=== PATIENT | female | born 1955 | race African-American/Black ===

== ENCOUNTER 2021-05-10 14:27 | Emergency (ER) | payer MEDICARE ==
[2021-05-10 15:00] LABS: Bilirubin Negative (Negative); Blood, Urine Trace (Negative); Glucose, Urine (Dipstick) Negative (Negative); Ketone, Urine 15 mg/dL (Negative); Leukocyte Trace (Negative); Nitrite Negative (Negative); Protein, Urine (Dipstick) Negative (Neg-Trace); Specific Gravity, Urine 1.025 (1.005-1.030); Urobilinogen 0.2 mg/dL (Less than 2); pH, Urine 5.5 (5.0-9.0)
[2021-05-10 15:16] LABS: Clarity Hazy (Clear)
[2021-05-10 15:17] LABS: Bacteria/HPF Rare-Few HPF (None Seen); RBC/HPF 0-3 HPF (0-3); Squamous Epithelial 0-3 HPF (0-3); WBC/HPF 21-50 HPF (0-3)
[2021-05-10 15:53] LABS: ALT (SGPT) 12 U/L (8-55); AST (SGOT) 17 U/L (5-34); Albumin 4.2 g/dL (3.4-4.8); Alkaline Phosphatase 79 U/L (40-110); Anion Gap 12 mmol/L (10-20); BUN (Urea Nitrogen) 16 mg/dL (9.8-20.1); Bilirubin, Total 0.4 mg/dL (0.2-1.2); Calc. Creatinine Clearance 0 mL/min (70-130); Calcium 9.4 mg/dL (7.8-10.44); Carbon Dioxide 26 mmol/L (23-31); Chloride 105 mmol/L (98-107); Globulin 3.3 g/dL (2.4-3.5); Glucose 98 mg/dL (80-115); Potassium 3.4 mmol/L (3.5-5.1); Protein, Total 7.5 g/dL (5.8-8.1); Sodium 140 mmol/L (136-145)
[2021-05-10 15:55] LABS: Band 1 % (5-11); Lymphocytes 36 % (21-51); MDiff Complete? YES; Mean Corpuscular HGB CONC 30.4 g/dL (32.0-36.0); Mean Corpuscular Hemoglobin 26.9 pg (27.0-31.0); Mean Corpuscular Volume 88.4 fL (78.0-98.0); Mean Platelet Volume 8.7 fL (7.4-10.4); Monocytes 6 % (0-10); Neutrophil 57 % (42-75); Platelet Count 242 thou/uL (130-400); Platelet Morphology Comment Appears Adequate; RBC Distribution Width 12.8 % (11.5-14.5); RBC Morphology Normal; Red Blood Cell (RBC) Count 4.82 mill/uL (4.20-5.40); White Blood Cell (WBC) Count 6.3 thou/uL (4.8-10.8)
[2021-05-10] MEDS ORDERED: Mag-Al Plus 1200 MG/1200 MG/120 MG/30 ML UDCUP ONE (16:51)
[2021-05-10] MEDS ORDERED: Meclizine HCl 25 MG TAB ONE (16:51)
[2021-05-10] MEDS ORDERED: hydrALAZINE 20 MG/ML VIAL ONE (19:47)
[2021-05-10] MEDS ORDERED: Acetaminophen 500 MG TAB ONE (21:07)
[2021-05-10] MEDS ORDERED: cefTRIAXone\\ROCEPHIN 1 GM VIAL ONE (21:18)
[2021-05-10] MEDS ORDERED: Sodium Chloride 0.9% 100 ML ONE (21:18)
[2021-05-10] MEDS ORDERED: Amlodipine 5 MG TAB ONE (21:36)
== END 2021-05-10 21:37 | disposition short-term general hospital (02) ==
LOC: MADERS 14:27
DX: G45.9 Transient cerebral ischemic attack, unspecified (principal); N39.0 Urinary tract infection, site not specified; R29.700 NIHSS score 0
CPT/HCPCS: 36415; 70450; 71045; 80053; 81003; 81015; 83735; 83880; 84484; 85025; 93005; 96374; 96375; J0360; J0696; J3490

== ENCOUNTER 2021-05-18 07:59 | Emergency (ER) | payer MEDICARE ==
[2021-05-18] MEDS ORDERED: Ondansetron PF 4 MG/2 ML Vial ONE (09:01)
[2021-05-18] MEDS ORDERED: Meclizine HCl 25 MG TAB ONE (09:01)
[2021-05-18 09:44] LABS: Mean Corpuscular HGB CONC 31.4 g/dL (32.0-36.0); Mean Corpuscular Hemoglobin 27.5 pg (27.0-31.0); Mean Corpuscular Volume 87.6 fL (78.0-98.0); Mean Platelet Volume 9.2 fL (7.4-10.4); Platelet Count 270 thou/uL (130-400); RBC Distribution Width 12.4 % (11.5-14.5); Red Blood Cell (RBC) Count 5.14 mill/uL (4.20-5.40); White Blood Cell (WBC) Count 5.5 thou/uL (4.8-10.8)
[2021-05-18 09:54] LABS: Manual Diff?? YES
[2021-05-18 09:55] LABS: Anisocytosis SLIGHT = 6-15 cells (100X) (0-5/hpf); Band 2 % (5-11); Lymphocytes 39 % (21-51); MDiff Complete? YES; Monocytes 5 % (0-10); Neutrophil 54 % (42-75); Platelet Morphology Comment Appears Adequate
[2021-05-18 09:57] LABS: Bicarbonate (HCO3v) 31.1 mmol/L (22.0-28.0); CO2 Tension (PvCO2) 49.5 mmHg (42.0-51.0)
[2021-05-18 09:58] LABS: Hemoglobin - Calc 16.3 g/dL (12.0-16.0); Sodium 136 mmol/L (138-145); vO2 Saturation-calc 93.7 % (60.0-85.0)
[2021-05-18 09:59] LABS: Chloride 97 mmol/L (98-107); Potassium 5.3 mmol/L (3.5-5.1); T. Carbon Dioxide 32.6 mmol/L (22.0-28.0)
[2021-05-18 10:01] LABS: Calcium, Ionized 1.08 mmol/L (1.15-1.33)
[2021-05-18 10:08] LABS: Bilirubin Negative (Negative); Blood, Urine Trace (Negative); Clarity Clear (Clear); Glucose, Urine (Dipstick) Negative (Negative); Ketone, Urine Negative (Negative); Leukocyte Negative (Negative); Nitrite Negative (Negative); Protein, Urine (Dipstick) Negative (Neg-Trace); Specific Gravity, Urine 1.025 (1.005-1.030); Urobilinogen 0.2 mg/dL (Less than 2)
[2021-05-18 10:15] LABS: RBC/HPF 0-3 HPF (0-3); WBC/HPF 0-3 HPF (0-3)
[2021-05-18 10:16] LABS: Bacteria/HPF Rare-Few HPF (None Seen)
[2021-05-18 10:39] LABS: ALT (SGPT) 13 U/L (8-55); AST (SGOT) 21 U/L (5-34); Albumin 4.4 g/dL (3.4-4.8); Alkaline Phosphatase 81 U/L (40-110); Anion Gap 16 mmol/L (10-20); BUN (Urea Nitrogen) 21 mg/dL (9.8-20.1); Bilirubin, Total 0.5 mg/dL (0.2-1.2); Calc. Creatinine Clearance 0 mL/min (70-130); Calcium 9.7 mg/dL (7.8-10.44); Carbon Dioxide 28 mmol/L (23-31); Chloride 96 mmol/L (98-107); Globulin 3.9 g/dL (2.4-3.5); Glucose 110 mg/dL (80-115); Magnesium 2.1 mg/dL (1.6-2.6); Potassium 3.6 mmol/L (3.5-5.1); Protein, Total 8.3 g/dL (5.8-8.1); Sodium 136 mmol/L (136-145)
[2021-05-18 11:28] LABS: Troponin I Less than 0.010 ng/mL (< 0.028)
== END 2021-05-18 11:58 | disposition home or self-care (01) ==
LOC: MADERS 07:59
DX: R42 Dizziness and giddiness (principal); R11.2 Nausea with vomiting, unspecified; Z79.899 Other long term (current) drug therapy; Z79.82 Long term (current) use of aspirin
CPT/HCPCS: 36415; 71045; 80053; 81003; 81015; 82330; 82803; 83735; 83880; 84443; 84484; 85014; 85025; 93005; 96374; J2405

== ENCOUNTER 2021-11-29 07:36 | Emergency (ER) | payer MEDICARE ==
[2021-11-29] MEDS ORDERED: Meclizine HCl 25 MG TAB ONE (08:33)
[2021-11-29 09:51] LABS: ALT (SGPT) 10 U/L (8-55); AST (SGOT) 17 U/L (5-34); Albumin 3.9 g/dL (3.4-4.8); Alkaline Phosphatase 61 U/L (40-110); Anion Gap 12 mmol/L (10-20); BUN (Urea Nitrogen) 11 mg/dL (9.8-20.1); Bilirubin, Total 0.3 mg/dL (0.2-1.2); Calc. Creatinine Clearance 0 mL/min (70-130); Carbon Dioxide 28 mmol/L (23-31); Chloride 108 mmol/L (98-107); Globulin 3.2 g/dL (2.4-3.5); Glucose 85 mg/dL (80-115); Magnesium 1.9 mg/dL (1.6-2.6); Potassium 4.4 mmol/L (3.5-5.1); Protein, Total 7.1 g/dL (5.8-8.1); Sodium 144 mmol/L (136-145)
[2021-11-29 09:55] LABS: Hemoglobin 12.3 g/dL (12.0-16.0); Mean Corpuscular Hemoglobin 27.6 pg (27.0-31.0); Mean Corpuscular Volume 87.2 fL (78.0-98.0); Red Blood Cell (RBC) Count 4.48 mill/uL (4.20-5.40); White Blood Cell (WBC) Count 4.2 thou/uL (4.8-10.8)
[2021-11-29 09:56] LABS: Manual Diff?? YES; Mean Corpuscular HGB CONC 31.6 g/dL (32.0-36.0); Mean Platelet Volume 6.9 fL (7.4-10.4); Platelet Count 235 thou/uL (130-400); RBC Distribution Width 12.3 % (11.5-14.5)
[2021-11-29 10:03] LABS: Band 2 % (5-11); Lymphocytes 56 % (21-51); MDiff Complete? YES; Monocytes 2 % (0-10); Neutrophil 40 % (42-75); Platelet Morphology Comment Appears Adequate; RBC Morphology Normal
== END 2021-11-29 10:36 | disposition home or self-care (01) ==
LOC: MADERS 07:36
DX: R42 Dizziness and giddiness (principal); G47.33 Obstructive sleep apnea (adult) (pediatric); I95.1 Orthostatic hypotension
CPT/HCPCS: 80053; 83735; 84443; 85025; 93005

== ENCOUNTER 2022-02-11 14:46 | Emergency (ER) | payer MEDICARE ==
[2022-02-11] MEDS ORDERED: Acetaminophen 325 MG TAB ONE (15:22)
== END 2022-02-11 15:28 | disposition home or self-care (01) ==
LOC: MADERS 14:46
DX: M54.6 Pain in thoracic spine (principal); K21.9 Gastro-esophageal reflux disease without esophagitis; E78.2 Mixed hyperlipidemia; M19.90 Unspecified osteoarthritis, unspecified site; Z86.73 Personal history of transient ischemic attack (TIA), and cerebral infarction without residual deficits; G47.30 Sleep apnea, unspecified; Z79.82 Long term (current) use of aspirin; Z79.899 Other long term (current) drug therapy
CPT/HCPCS: 99283

== ENCOUNTER 2022-06-12 14:18 | Outpatient (CLI) | payer MEDICARE, OTHER | END 2022-06-12 14:19 | disposition home or self-care (01) | LOC: MADRAD 14:18 | PROVIDERS: ATTEND Family Medicine | DX: M25.511 Pain in right shoulder (principal) ==

== ENCOUNTER 2022-07-15 17:44 | Emergency (ER) | payer OTHER ==
[2022-07-15] MEDS ORDERED: Acetaminophen 325 MG TAB ONE (18:03)
[2022-07-15] MEDS ORDERED: Ondansetron ODT 4 MG TAB ONE (18:03)
== END 2022-07-15 20:47 | disposition home or self-care (01) ==
LOC: MADERS 17:44
DX: R11.0 Nausea (principal); K08.89 Other specified disorders of teeth and supporting structures; R05.9 Cough, unspecified; R68.83 Chills (without fever); K21.9 Gastro-esophageal reflux disease without esophagitis; E78.00 Pure hypercholesterolemia, unspecified; M19.90 Unspecified osteoarthritis, unspecified site; G40.409 Other generalized epilepsy and epileptic syndromes, not intractable, without status epilepticus; Z20.822 Contact with and (suspected) exposure to COVID-19; Z86.73 Personal history of transient ischemic attack (TIA), and cerebral infarction without residual deficits; Z79.82 Long term (current) use of aspirin; Z79.899 Other long term (current) drug therapy
CPT/HCPCS: 87804 ×2; 99283; U0003; U0005; Q0162

== ENCOUNTER 2023-02-09 10:20 | Emergency (ER) | payer OTHER ==
[2023-02-09] MEDS ORDERED: Acetaminophen 500 MG TAB ONE (10:46)
[2023-02-09 11:02] LABS: Bilirubin Negative (Negative); Blood, Urine Negative (Negative); Glucose, Urine (Dipstick) Negative (Negative); Ketone, Urine Negative (Negative); Leukocyte Small (Negative); Nitrite Negative (Negative); Protein, Urine (Dipstick) 30 mg/dL (Neg-Trace); Urobilinogen 0.2 mg/dL (Less than 2); pH, Urine 6.5 (5.0-9.0)
[2023-02-09 11:03] LABS: Specific Gravity, Urine 1.025 (1.002-1.036)
[2023-02-09 11:04] LABS: Clarity Hazy (Clear)
[2023-02-09 11:09] LABS: Bacteria/HPF Rare-Few HPF (None Seen); Mucous/LPF 1+ LPF (<2+); RBC/HPF None Seen HPF (0-3)
== END 2023-02-09 11:37 | disposition home or self-care (01) ==
LOC: MADERS 10:20
DX: S39.012A Strain of muscle, fascia and tendon of lower back, initial encounter (principal); E78.00 Pure hypercholesterolemia, unspecified; I10 Essential (primary) hypertension; K21.9 Gastro-esophageal reflux disease without esophagitis; X58.XXXA Exposure to other specified factors, initial encounter
CPT/HCPCS: 81003; 81015

== ENCOUNTER 2023-03-12 23:08 | Emergency (ER) | payer OTHER ==
[2023-03-13] MEDS ORDERED: Benzonatate 100 MG CAP ONE (00:36)
== END 2023-03-13 00:55 | disposition home or self-care (01) ==
LOC: MADERS 23:08
DX: J06.9 Acute upper respiratory infection, unspecified (principal); E78.5 Hyperlipidemia, unspecified; I10 Essential (primary) hypertension
CPT/HCPCS: 71045

== ENCOUNTER 2023-05-16 22:30 | Emergency (ER) | payer OTHER ==
[2023-05-16 23:01] LABS: Bilirubin Negative (Negative); Blood, Urine Small (Negative); Glucose, Urine (Dipstick) Negative (Negative); Ketone, Urine Negative (Negative); Leukocyte Negative (Negative); Nitrite Negative (Negative); Protein, Urine (Dipstick) > or equal to 300 mg/dL (Neg-Trace); Specific Gravity, Urine 1.025 (1.005-1.030); Urobilinogen 0.2 mg/dL (Less than 2); pH, Urine 5.5 (5.0-9.0)
[2023-05-16 23:03] LABS: Bacteria/HPF Rare-Few HPF (None Seen); CAUTI Indications for Culture Dysuria,urgency,freq; Clarity Hazy (Clear); RBC/HPF 0-3 HPF (0-3)
[2023-05-16 23:06] LABS: Urine Culture Reflex No No
== END 2023-05-16 23:24 | disposition home or self-care (01) ==
LOC: MADERS 22:30
DX: R11.0 Nausea (principal); R82.90 Unspecified abnormal findings in urine; E78.00 Pure hypercholesterolemia, unspecified; K21.9 Gastro-esophageal reflux disease without esophagitis; I10 Essential (primary) hypertension; Z79.82 Long term (current) use of aspirin; Z86.73 Personal history of transient ischemic attack (TIA), and cerebral infarction without residual deficits; Z79.899 Other long term (current) drug therapy
CPT/HCPCS: 81001; 87086; 99283

== ENCOUNTER 2023-10-17 17:26 | Emergency (ER) | payer OTHER | END 2023-10-17 18:04 | disposition home or self-care (01) | LOC: MADERS 17:26 | DX: J06.9 Acute upper respiratory infection, unspecified (principal); E78.00 Pure hypercholesterolemia, unspecified; K21.9 Gastro-esophageal reflux disease without esophagitis; Z79.82 Long term (current) use of aspirin; Z79.899 Other long term (current) drug therapy | CPT/HCPCS: 99283 ==